=== PATIENT | male | born 1930 | race Caucasian/White ===

== ENCOUNTER 2017-04-02 13:25 | Inpatient (IN) | payer MEDICARE, BC ==
[~2017-04-02] VITALS: Ht 170.2 cm; Wt 66.2 kg
[~2017-04-02 13:25] MED LIST: ASPI-495 PO; ATEN25TA PO; CA C1TAB38 PO; CHOL200026 PO; CHRO400T8 PO; DONE5TAB34 PO; FINA5TAB11 PO; LACT1CAP61 PO; LOSA50TA21 PO; MIRT7.5T10 PO; MULT-59 PO; OMEG-9 PO; POTA2TAB18 PO; SIMV40TA5 PO; TAMS-12 PO
--- NOTE | 2017-04-02 13:30 | NUR ---
BIB SON FROM HOME DUE SOB AND CHEST DISCOMFORT DURING INSPIRATORY X 1 DAY. PATIENT APPEARS IN NO DISTRESS. PATIENT REPORTED SOB-- PLACED ON O2 VIA NC @2LPM. SKIN IS WARM TO TOUCH AND NON DIAPHORETIC , AFEBRILE. GOWNED PT AND PLACED ON TELE MONITOR, VSS Addendum: 04/02/17 at 1402 by GEOVANY MEDS GIVEN PER MD ORDER
[2017-04-02 13:49] LABS: BASOPHILS # (AUTO) 0.3 /CMM (0.0-0.2); BASOPHILS % (AUTO) 2.3 % (0.0-2.0); EOSINOPHILS # (AUTO) 0.1 /CMM (0.0-0.7); EOSINOPHILS % (AUTO) 0.6 % (0.0-6.0); HEMATOCRIT 45 % (39-51); HEMOGLOBIN 15.2 g/dL (13.5-17.5); LYMPHOCYTES # (AUTO) 2.1 /CMM (0.8-4.8); LYMPHOCYTES % (AUTO) 18.6 % (20.0-44.0); MEAN CORPUSCULAR HEMOGLOBIN 29 PG (26.0-33.0); MEAN CORPUSCULAR HGB CONC 34 g/dl (31.0-36.0); MEAN CORPUSCULAR VOLUME 87 fL (80-96); MONOCYTES # (AUTO) 0.8 /CMM (0.1-1.30); MONOCYTES % (AUTO) 6.9 % (2.0-12.0); NEUTROPHILS # (AUTO) 7.9 /CMM (1.8-8.9); NEUTROPHILS % (AUTO) 71.6 % (43.0-81.0); PLATELET COUNT (AUTO) 275 /CMM (150-450); RDW COEFFICIENT OF VARIATION 13.5 (11.5-15.0); RED BLOOD CELL COUNT(AUTO) 5.18 MIL/uL (4.5-6.0); WHITE BLOOD COUNT (AUTO) 11.2 K/uL (4.3-11.0)
[2017-04-02] MEDS ORDERED: ASPIRIN EC 325 MG TABLET.DR PO ONE (13:52)
[2017-04-02] MEDS ORDERED: NITROGLYCERIN PACKET 1 GM PACKET ONE (13:52)
--- NOTE | 2017-04-02 13:52 | NUR ---
IV STARTWED 18 G IVP RT AC LABS DRAWN SEN TO LAB AWAITING EVALUATION BY ER PROVIDER.
[2017-04-02] MEDS ORDERED: ASPIRIN 325 MG TABLET ONE (13:53)
[2017-04-02] MEDS ORDERED: NITROGLYCERIN PACKET 1 GM PACKET TD ONE (14:00)
[2017-04-02] MEDS ORDERED: ASPIRIN 325 MG TABLET PO ONE (14:00)
[2017-04-02 14:18] LABS: INR 0.95 (0.87-1.13); PROTHROMBIN TIME 9.9 SECS (9.5-12.7)
--- NOTE | 2017-04-02 14:18 | NUR ---
CHEST XRAY DONE AWAITING EVALUATION BY ER PROVIDER.
[2017-04-02 15:11] LABS: CALCIUM, SERUM 9.2 mg/dL (8.5-10.1); CARBON DIOXIDE 25 mmol/L (21-32); CHLORIDE 102 mmol/L (98-107); GLUCOSE 110 mg/dL (74-106); POTASSIUM 4.1 mmol/L (3.5-5.1); SODIUM SERUM 134 mmol/L (136-145); UREA NITROGEN, BLOOD 14 mg/dL (7-18)
[2017-04-02 15:22] LABS: ALANINE AMINOTRANSFERASE 19 U/L (12-78); ALBUMIN 3.6 g/dL (3.4-5.0); ALKALINE PHOSPHATASE 146 U/L (46-116); ASPARTATE AMINOTRANSFERASE 30 U/L (15-37); B-TYPE NATRIURETIC PEPTIDE 171 PG/ML (0-125); BILIRUBIN,DIRECT 0.1 mg/dL (0.0-0.2); TOTAL PROTEIN, SERUM 7.2 g/dL (6.4-8.2)
[2017-04-02 15:26] LABS: TROPONIN I < 0.017 ng/mL (0.00-0.056)
--- NOTE | 2017-04-02 15:50 | NUR ---
ATTEMPTED TO CALL NUMBER ON FILE FOR DR HA, NO OPTION FOR VOICEMAIL AND NO RESPONSE
--- NOTE | 2017-04-02 15:53 | NUR ---
AVIATION TECHNICIAN GENER TRIED NUMBER FOR DR HA. LEFT A MESSAGE
[2017-04-02] MEDS ORDERED: LIDOCAINE VISCOUS 2% UD 15 ML UDC MM ONE (16:30)
[2017-04-02] MEDS ORDERED: FAMOTIDINE (20 MG) 20 MG TABLET PO ONE (16:30)
[2017-04-02] MEDS ORDERED: MAG HYDROX/AL HYDROX/SIMETH 30 ML UDC PO ONE (16:30)
[2017-04-02] MEDS ORDERED: MAG HYDROX/AL HYDROX/SIMETH 30 ML UDC ONE (16:57)
[2017-04-02] MEDS ORDERED: LIDOCAINE VISCOUS 2% UD 15 ML UDC ONE (16:57)
[2017-04-02] MEDS ORDERED: FAMOTIDINE (20 MG) 20 MG TABLET ONE (16:57)
--- NOTE | 2017-04-02 17:13 | NUR ---
PT GIVEN MEDS PER MD
--- NOTE | 2017-04-02 18:28 | NUR ---
TELE/RN ADMITTING NOTES RECEIVED PATIENT FROM ER VIA [facility] WITH ADMITTING DIAGNOSIS OF SOB, CHF PAST MEDICAL HISTORY OF HYPERTENSION, PROSTATE SX. ALLERGIES TO PENECILLIN G. PATIENT FROM HOME, LIVES WITH , CHIEF COMPLIANT SOB, GENERALIZED WEAKENS. A/0X3, AMBULATORY WITH ASSIST. IV TO RIGHT AC 18G H/L AT THIS TIME. NO ADMITTING ORDERS RECEIVED WILL F/U WITH MD. UPON ASSESSMENT PATIENT IN NO APPARENT DISTRESS, NO RESPIRATORY ISSUES NOTED, LUNG SOUND CLEAR, PER TELE READING SR HR 80. VITAL SIGNS STABLE RUNNING SLIGHT HIGH GRADE TEMP OF 99.0, BP 112/58 02 97%. PATIENT RESTING IN BED COMFORTABLY. WILL ENDORSE CARE TO HEAT AND VENT AIRCRAFT MECHANIC FOR [place]
--- NOTE | 2017-04-02 19:25 | NUR ---
TELE/RN NOTES RECEIVED PT. LYING IN BED. AWAKE, ALERT AND ORIENTED X2-3. BREATHING EVEN AND UNLABORED ON 2LPM O2 VIA NC. NO SOB, RESPIRATORY DISTRESS OR COMPLAINTS OF PAIN NOTED AT THIS TIME. PT. WITH EXTERNAL LINE MAINTENANCE TECHNICIAN PRESENT AND INTACT. CURRENT RHYTHM = SINUS RHYTHM WITH PAC'S HR 82. PT. WITH RIGHT AC 18 GAUGE IV SALINE LOCK PRESENT, PATENT AND INTACT. PER DAYSHIFT NURSE AWAITING ADMITTING ORDERS. BED LOCKED AND IN LOWEST POSITION, SIDE RAILS UP X2, BED ALARM ON, CALL LIGHT WITHIN REACH, WILL CONTINUE TO MONITOR.
[2017-04-02 20:18] VITALS: BP 103/42
--- NOTE | 2017-04-02 20:32 | NUR ---
TELE/RN NOTES CALLED DR. FORRESTER TO CLARIFY AND RECEIVE ADMITTING ORDERS. UNABLE TO REACH MD AT THIS TIME, LEFT A MESSAGE AND AWAITING CALL BACK FROM DR. FORRESTER. WILL CONTINUE TO MONITOR.
--- NOTE | 2017-04-02 20:52 | NUR ---
TELE/RN NOTES SPOKE WITH DR. FORRESTER REGARDING ADMITTING ORDERS. PER DR. FORRESTER NEW ORDERS: ADMIT TO: TELE, DIAGNOSIS: CHEST PAIN, CONDITION: GUARDED, ROUTINE VITALS, BED REST WITH BEDSIDE COMMODE, IV D5W @ 10ML/HR, REPEAT TROPONIN X1, NITROGLYCERIN SL 0.4MG Q5 MIN PRN CHEST PAIN, IF NEEDED X3 CONTACT MD, LABS: BMP FOR TOMORROW 04/03 REGULAR DIET AND CONTINUE HOME MEDICATIONS. WILL CARRY OUT ORDERS. WILL CONTINUE TO MONITOR.
[2017-04-02] MEDS ORDERED: IV D5W 1,000 ML IV PRN (21:00)
[2017-04-02] MEDS ORDERED: NITROGLYCERIN 0.4 MG/TAB BOTTLE SL PRN (21:00)
[2017-04-03] VITALS: BP 119/66
[2017-04-03] MEDS ORDERED: LOSARTAN POTASSIUM 50 MG TABLET ONE (00:08)
[2017-04-03] MEDS ORDERED: TAMSULOSIN 0.4 MG CAP.SR.24H ONE (00:08)
[2017-04-03] MEDS ORDERED: SIMVASTATIN 40 MG TABLET ONE (00:09)
[2017-04-03] MEDS ORDERED: FINASTERIDE (5 MG) 5 MG TABLET ONE (00:10)
[2017-04-03 04:00] VITALS: BP 111/59
--- NOTE | 2017-04-03 06:36 | NUR ---
TELE/RN NOTES PT. IS LYING IN BED RESTING, BREATHING EVEN AND UNLABORED ON 2LPM O2 VIA NC. NO SOB, RESPIRATORY DISTRESS OR COMPLAINTS OF PAIN NOTED AT THIS TIME. NO COMPLAINTS OF CHEST PAIN NOTED AT THIS TIME AND THROUGHOUT SHIFT. PT. WITH EXTERNAL BUSINESS MANAGEMENT CONSULTANT PRESENT AND INTACT. CURRENT RHYTHM = SINUS RHYTHM WITH PAC'S HR 77. PT. WITH RIGHT AC 18 GAUGE IV SALINE LOCK PRESENT, PATENT AND INTACT. PT. REFUSING IV FLUIDS AT THIS TIME. ALL PT. NEEDS MET. ALL DUE MEDICATIONS GIVEN. BED LOCKED AND IN LOWEST POSITION, SIDE RAILS UP X2, BED ALARM ON, CALL LIGHT WITHIN REACH, WILL ENDORSE TO DAYSHIFT NURSE FOR CONTINUITY OF CARE.
--- NOTE | 2017-04-03 08:00 | NUR ---
rn notes received patient in the bed sleeping, no acute respiratory distress, ptiwnt on n Addendum: 04/03/17 at 1251 by VINICIUS BOWER RN RN NOTES RECEIVED WILLIE T IN THE BED SLEEPING, PATIENT ON 02-2L NC, NO RESPIRATORY DISTRESS, PATIENT TELE MONITOR, SR-81. IV ACCESS ON RIGHT AC AREA INTACT. AROUSE WHEN TOUCHED OR CALLED NAME, CALL LIGHT WITHIN TO REACH. SAFETY PRECAUTION MAINTAINED ALL THE TIME.
[2017-04-03 08:24] LABS: CALCIUM, SERUM 8.4 mg/dL (8.5-10.1); CARBON DIOXIDE 24 mmol/L (21-32); CHLORIDE 102 mmol/L (98-107); CREATININE 0.8 mg/dL (0.6-1.3); GLUCOSE 103 mg/dL (74-106); POTASSIUM 3.9 mmol/L (3.5-5.1); SODIUM SERUM 133 mmol/L (136-145); UREA NITROGEN, BLOOD 16 mg/dL (7-18)
[2017-04-03] MEDS ORDERED: CARVEDILOL 3.125 MG TABLET PO SCH (09:00)
--- NOTE | 2017-04-03 10:00 | NUR ---
RN NOTES PER Dr HALLMAN ORDER PATIENT D/C TELE TO MED/SURGE, REMOVED TELE MONITOR, V/S TAKEN BP 115/59, P-81, SEEN GUMARO LORENZO, PATIENT GOING TO D/C HOME. PATIENT MED COMPLIANT, NO C/O PAIN AT THIS TIME, STABLE. NEEDS ATTENDED AND ANTICIPATED, SAFETY PRECAUTION MAINTAINED ALL THE TIME.
[2017-04-03] MEDS ORDERED: MULTIVITAMINS,THERAGRAN 1 UDTAB TABLET PO SCH (10:49)
[2017-04-03 10:57] VITALS: BP 115/69
[2017-04-03] MEDS ORDERED: [UNRECOGNIZED DRUG - MIXTURE] PO SCH (11:00)
[2017-04-03] MEDS ORDERED: CHROMIUM PICOLINATE 500 MCG PO SCH (11:00)
[2017-04-03] MEDS ORDERED: POTASSIUM GLUCONATE 595 MG PO SCH (11:00)
[2017-04-03] MEDS ORDERED: LACTOBACILLUS RHAMNOSUS GG 1 EACH CAP.SPRINK PO SCH (11:00)
[2017-04-03] MEDS ORDERED: FISH OIL PO SCH (11:00)
[2017-04-03] MEDS ORDERED: DONEPEZIL 5 MG TABLET PO SCH (11:00)
[2017-04-03] MEDS ORDERED: EPA PO SCH (11:00)
[2017-04-03] MEDS ORDERED: CHOLECALCIFEROL 1,000 UNIT TABLET (VIT D3) PO SCH (11:00)
[2017-04-03] MEDS ORDERED: [UNRECOGNIZED DRUG - OTHER] PO SCH (11:00)
[2017-04-03] MEDS ORDERED: ATENOLOL 25 MG TABLET PO SCH (11:00)
[2017-04-03] MEDS ORDERED: DHA PO SCH (11:00)
[2017-04-03] MEDS ORDERED: ASPIRIN EC 81 MG TABLET.DR PO SCH (11:00)
[2017-04-03] MEDS ORDERED: OMEGA PO SCH (11:00)
--- NOTE | 2017-04-03 12:54 | NUR ---
DISCHARGE NOTES PATIENT DISCHARGE AT THIS TIME GOING HOME. PATIENT A/O X3, MEDICALLY STABLE, NO C/O PAIN, V/S STABLE. MEDICALLY STABLE. MED RECONCILIATION AND DISCHARGE ORDER REVIEWED AND EXPLAINED TO PATIENT AND SON. SON VERBALIZED UNDERSTANDING. BELONGING WITH THE PATIENT, PATIENT WILL FOLLOW PRIMARY MD LORENZO. ESCORTED PATIENT TO THE LOBBY FOR SAFETY. PATIENT HOME PLANNING CONSULTANT SALESPERSON BY SON NAME ZULMA PHONE #[phone].
[2017-04-03] MEDS ORDERED: TAMSULOSIN 0.4 MG CAP.SR.24H PO SCH ×2 (18:00)
[2017-04-03] MEDS ORDERED: LOSARTAN POTASSIUM 50 MG TABLET PO SCH ×2 (18:00)
[2017-04-03] MEDS ORDERED: FINASTERIDE (5 MG) 5 MG TABLET PO SCH ×2 (22:00)
[2017-04-03] MEDS ORDERED: SIMVASTATIN 40 MG TABLET PO SCH ×2 (22:00)
[2017-04-03] MEDS ORDERED: MIRTAZAPINE 15 MG TABLET PO SCH (22:00)
[2017-04-04] MEDS ORDERED: REGADENOSON 0.4 MG/5 ML DISP.SYRIN IVP ONE (08:00)
== END 2017-04-03 12:40 | disposition home or self-care (01) | DRG 313 ==
LOC: ER 13:26 → TRANSITION 16:47 → TELE 17:20 → MED 04-03 10:03
PROVIDERS: ADMIT Family Medicine; ATTEND Family Medicine
DX: R07.89 Other chest pain (principal); I10 Essential (primary) hypertension; Z88.0 Allergy status to penicillin; Z82.49 Family history of ischemic heart disease and other diseases of the circulatory system; Z83.3 Family history of diabetes mellitus; Z79.82 Long term (current) use of aspirin; Z79.899 Other long term (current) drug therapy; N40.0 Benign prostatic hyperplasia without lower urinary tract symptoms; I70.0 Atherosclerosis of aorta
CPT/HCPCS: 36415; 71045-TC; 80048-TC; 80076-TC; 83880; 84484-TC; 85025-TC; 85730-TC; 87081-TC; 93307-TC; A4606; J7070; Z7610